=== PATIENT | male | born 1960 | race Caucasian/White ===

== ENCOUNTER 2018-06-29 06:13 | Day surgery (SDC) | payer OTHER ==
[~2018-06-29 06:13] MED LIST: ALPRAZOLAM1 M1 PO; AMBIEN10 MG PO; ENALAPRIL MALEA20 MG PO; FENOFIBRATE145 MG PO; FORTAMET1000 MG PO; GLIMEPIRIDE2 MG PO; JANUMET XR 1001 EACH PO; METOPROLOL SUCC25 MG PO; VENLAFAXINE HCL75 MG PO
[2018-06-29] MEDS ORDERED: DUI500 PO (17:26)
[2018-06-29] MEDS ORDERED: PERCOCET 5-3251 EACH PO (17:27)
== END 2018-06-29 22:20 | disposition home or self-care (01) ==
LOC: CIR.AMB 06:13
DX: S42.362A Displaced segmental fracture of shaft of humerus, left arm, initial encounter for closed fracture (principal)